=== PATIENT | male | born 1950 | race Caucasian/White ===

== ENCOUNTER 2019-08-11 15:52 | Inpatient (IN) | payer MEDICARE ==
[~2019-08-11] VITALS: Ht 187.9 cm; Wt 90.7 kg
[2019-08-11] MEDS ORDERED: ASPIRIN81 M1 PO (15:57)
[2019-08-11] MEDS ORDERED: PLAVIX75 M1 PO (15:58)
[2019-08-11] MEDS ORDERED: ATORVASTATIN CA40 M1 PO (15:58)
[2019-08-11] MEDS ORDERED: METOPROLOL25 MG PO (15:59)
[2019-08-11] MEDS ORDERED: METOCLOPRAMIDE10 M1 PO (15:59)
[2019-08-11] MEDS ORDERED: MIDODRINE HCL10 MG PO (15:59)
[2019-08-11] MEDS ORDERED: PROTONIX40 MG PO (16:00)
[2019-08-11] MEDS ORDERED: PAXIL20 M1 PO (16:01)
[2019-08-11] MEDS ORDERED: PROSCAR5 M1 PO (16:02)
[2019-08-11] MEDS ORDERED: FERREX 150150 MG PO (16:02)
[2019-08-11 16:43] VITALS: BP 130/64
[2019-08-11 16:44] VITALS: BP 130/64
--- NOTE | 2019-08-11 16:47 | NUR ---
SAPNA GILBERT a 69 year old M admitted via wheel chair from the EMERGENCY ROOM as a voluntary BY POA admission. Arrived on unit at 1637 . ALLERGIES: NKA . Vital signs are: 97.6-66-20 130/64. VERBAL CONSENT FROM POA FOR THE following forms with stated understanding: Authorization For The Release of Medical Information, Clothing List, Consent to Voluntary Admission and Hospitalization, Consent and Release Forms/Receipt of Rights, Acknowledgement of Advance Directive Information, Behavioral Health Consent Form, and Informed Consent of Medications. [facility] A search was conducted and hazardous articles were removed. Client was oriented to the unit. KASIA PADILLA
--- NOTE | 2019-08-11 16:50 | NUR ---
SPOKE WITH DR. ALVARADO AT [phone] RE: MEDICAL MANAGEMENT CONSULT NEEDED PER DR ARCE CONSULT UNDER DR. GALVAN. ALSO ADVISED THAT PT REQUIRES AN ORDER FOR KNEE HIGH JODY HOSE. NO FURTHER ORDERS AT THIS TIME.
--- NOTE | 2019-08-11 17:21 | NUR ---
PT SEMI COOPERATIVE WITH ASSESSMENT. ALERT TO PERSON WITH CONFUSION NOTED. MEMORY DEFICITS NOTED. DEPRESSED MOOD. DENIES SI/HI. CALM. ATTEMPTED TO GET A VERBAL SAFETY CONTRACT FROM THE PATIENT HOWEVER PT STATED HE WILL NOT COME TO STAFF WHEN HE HAS FEELINGS OF HURTING HIMSELF. SUICIDE SCORE IS 7. PT STATED HE HAS TRIED TO HURT HIMSELF HOWEVER HE WILL NOT TALK ABOUT HOW. PT STATED "END OF CONVERSATION". PT REFUSED TO DISCLOSE PLANS. PT STATED "THAT WOULD GIVE IT AWAY". ASSURED PT HE IS SAFE HERE AND STAFF IS HERE ANYTIME HE WANTS TO TALK AND OPEN UP. PT STATED "THATS NOT GOING TO HAPPEN" PT ALSO STATED HE HAD A STROKE 3 YEARS AGO. CELIS PLACED IN ER WITH AN OUTPUT OF 800 CC IN THE ER. IV PLACED IN ER AND REMOVED ON THE UNIT. PT RECEIVED IV ROCEPHIN IN ER. DR MCKAY MADE AWARE OF SUICIDE RISK SCORE AND PTS STATEMENTS. DR MCKAY STATED TO KEEP PT ON Q15 MINUTE SAFETY CHECKS. WILL CONTINUE TO VERBALLY CONTRACT FOR SAFETY.
--- NOTE | 2019-08-11 17:41 | NUR ---
SPOKE WITH DR. OLVERA ADVISED THAT PT RECEIVED A 1X DOSE OF ROCEPHIN IN ER FOR A UTI. NO FURTHER ORDERS AT THIS TIME.
[2019-08-11 19:27] VITALS: BP 147/68
[2019-08-11 20:00] VITALS: BP 147/68
[2019-08-12 06:57] LABS: BASO # 0.1 10*3/uL (0.0-0.1); BASO % 0.8 % (0.0-1.0); EOS # 0.4 10*3/uL (0.0-0.4); EOS % 4.5 % (1.0-4.0); HEMATOCRIT 34.8 % (42.0-52.0); HEMOGLOBIN 11.2 g/dl (14.0-18.0); LYMPH # 1.3 10*3/uL (1.3-4.4); MEAN CELL VOLUME 94.8 fl (80.0-94.0); MEAN CORPUSCULAR HGB 30.5 pg (27.0-31.0); MEAN CORPUSCULAR HGB CONC 32.2 g/dl (33.0-37.0); MEAN PLATELET VOLUME 9.3 fl (9.6-12.3); MONO # 0.8 10*3/uL (0.1-1.0); MONO % 9.3 % (3.0-9.0); NEUT # 5.9 10*3/uL (2.3-7.9); NEUT % 69.9 % (47.0-73.0); PLATELET COUNT AUTOMATED 348 10*3/uL (130-400); RED BLOOD COUNT 3.67 10*6/uL (4.50-5.90); RED CELL DISTRI WIDTH 12.8 % (0-14.5); WHITE BLOOD COUNT 8.5 10*3/uL (4.8-10.8)
[2019-08-12 07:25] LABS: BUN 19 mg/dl (7-24); CHLORIDE 109 mmol/L (98-107); CHOLESTEROL 96 mg/dL (<200); CREATININE 1.21 mg/dL (0.70-1.30); HDL CHOLESTEROL 31 mg/dl (40-60); LDL CHOLESTEROL 48 mg/dL (9-159); SGOT/AST 19 IU/L (3-35); SGPT/ALT 33 U/L (12-78); SODIUM 141 mmol/L (136-145); TOTAL PROTEIN 7.5 gm/dL (6.4-8.2); TRIGLYCERIDES 84 mg/dl (<150); VLDL CHOLESTEROL 17 mg/dL (6-40)
[2019-08-12 07:32] LABS: ALKALINE PHOSPHATASE 77 U/L (45-117)
[2019-08-12 07:45] VITALS: BP 112/64
--- NOTE | 2019-08-12 07:48 | NUR ---
PHYSICAL THERAPY Screened received from nursing along with PT orders for evaluation will follow, thank you Mirta Li PT
[2019-08-12 08:38] LABS: VITAMIN D, 25-HYDROXY 42.6 ng/mL (30-100)
--- NOTE | 2019-08-12 10:24 | NUR ---
Nursing screen and Occupationla Therapy referral received. Thank you. Latisha Gonzales OTR/L
--- NOTE | 2019-08-12 11:54 | NUR ---
AM GROUP/EXERCISE/CRAFT/MUSIC PT CHOSE NOT TO ATTEND OR PARTICIPATE BUT TO REMIAN IN ROOM RESTING AT THIS TIME. PT WILL CONTINUE TO BE ENCOURAGED TO ATTEND AND PARTICIPATE IN FUTURE GROUP SESSIONS.
--- NOTE | 2019-08-12 13:38 | NUR ---
Patient not available for Occupational THerapy evaluation as he was in group activity session. OTR will recheck at a later time. Latisha Gonzales OTR/kenya
--- NOTE | 2019-08-12 13:43 | NUR ---
PHYSICAL THERAPY Attempted to see pt for evaluation, unavailable at this time in group activity, thank you. Mirta Li PT
--- NOTE | 2019-08-12 15:29 | NUR ---
Patient in bed with blanket over his head. Occupational Therapy evaluation education provided to patient. He removed blanket and reported he would prefer OT return tomorrow for the evaluation. Patient was calm and polite. Latisha Gonzales OTR/Bridget
[2019-08-12 20:00] VITALS: BP 133/58
--- NOTE | 2019-08-12 23:17 | NUR ---
24 HR chart check completed.
--- NOTE | 2019-08-12 23:39 | NUR ---
P-DEPRESSED, CONFUSED I-PROVIDE EMOTIONAL SUPPORT, ASSESS ORIENTATION, ASSESS SUICIDAL FEELINGS, ADMINISTER MEDS, MONITOR SLEEP R-PT HAS BEEN CALM & CO-OPERATIVE. ALERT TO PERSON WITH MEMORY DEFICITS. DENIES SUICIDAL FEELINGS. STATED, "SAID THINGS I SHOULD HAVE KEPT TO MYSELF". DID STATE THAT HE IS FEELING "GOOD". CELIS CATH REMAINS INTACT. COMPLIANT TAKING MEDICATIONS WHOLE. P-CONTINUE TO MONIOR & PROVIDE PHYSICAL & EMOTIONAL SUPPORT NEEDED.
--- NOTE | 2019-08-13 04:30 | NUR ---
PT HAS SLEPT PAST 2229
[2019-08-13 08:00] VITALS: BP 150/88
--- NOTE | 2019-08-13 08:15 | NUR ---
Treatment Plan meeting was held this a.m. with Dr. Monroy, RN, AT, TO[employer] and Air Carrier Inspector. Plan for discharge next week. Pt. will require Alternate placement due to being discharged from [facility].
--- NOTE | 2019-08-13 09:10 | NUR ---
Spoke with Patricia at [facility], Advised that Pt. will require SNF and she states to just Fax Referral.
--- NOTE | 2019-08-13 11:02 | NUR ---
DR SINGH AND TEAM ON UNIT TO SEE PATIENT
--- NOTE | 2019-08-13 11:50 | NUR ---
Referrals faxed to [facility] for placement.
--- NOTE | 2019-08-13 11:57 | NUR ---
AM GROUP/EXERCISE AND BRAIN GAMES PT WAS PRESENT FOR MORNING GROUP THERAPY AND PARTICIPATED LIMITEDLY. PT WHEN CALLED ON STATED, "OH, I JUST HAVE SIMPLE THOUGHTS". PT EXPRESSED NO SUICIDAL IDEATIONS WHILE IN GROUP.
--- NOTE | 2019-08-13 12:15 | NUR ---
Spoke with pt's daughter aDrleen Culp who provided additional pt information. Discussed pt's discharge needs. Darleen stated that pt is on the waiting list at [facility] for the assisted living. She was unaware that pt is not allowed to return to [facility] for SNF. Discussed pt's need for SNF. Will explore discharge options for pt and notify Darleen of the options. Prior to most recent hospitalization, pt resided in his own home with services from the [facility] and private duty caregiver.
--- NOTE | 2019-08-13 13:50 | NUR ---
Occupational Therapy evaluation completed on 3N with full eval to follow. Precautions include fall risk,3N unit precautions,impaired functional mobility and transfers,coronado catheter,moderate complexity level 70921 via chart review, testing and evaluation. Recommend OT per POC and SNF to enable return home at independent level. Thank you. Latisha Gonzales OTR/L
--- NOTE | 2019-08-13 14:19 | NUR ---
PHYSICAL THERAPY Ruth completed full note to follow recomend SNF at discharge. Pt is moderate complexity level-50071, PT to work on transfers, strengthening and amb. Mirta Li PT
--- NOTE | 2019-08-13 16:13 | NUR ---
Shift chart check completed.
--- NOTE | 2019-08-13 16:28 | NUR ---
Further Clinicals faxed to [facility] Attn: Sheri.
--- NOTE | 2019-08-13 17:41 | NUR ---
P-CONFUSION I-REDIRECTION WITH 1:1 THERAPEUTIC INTERVENTIONS AND PRESENT REALITY. EDUCATE AND ENCOURAGE MEDICATION COMPLIANCE R-PATIENT MEDICATION COMPLIANT THROUGHOUT SHIFT. CELIS PATENT DRAINING DARK YELLOW URINE. PATIENT ALERT TO SELF AND AT TIMES SITUATIONS. PATIENT WITH RIGHT SIDED WEAKNESS. PATIENT WITH NO HALLUCINATIONS OR DELUSIONS. PATIENT WITH NO SUICIDAL OR HOMICIDAL IDEATIONS P-CONTINUE TO ENCOURAGE MEDICATION COMPLIANCE, CONTINUE TO PRESENT REALITY, ENCOURAGE GROUP THERAPY WHILE AWAKE
[2019-08-13 19:10] VITALS: BP 132/62
--- NOTE | 2019-08-13 21:40 | NUR ---
CALLED TO CLIENTS ROOM FOR YELLOW BROWN DISCHARGE DRIED TO HIS LEGS AND GROIN. PT C/O PAIN. PENIS TAUNT, RED, . CELIS REPOSITIONED AFTER DEFLATING BALLOON. LINE IRRIGATED. NO OBSTRUCTIONS NOTED. WILL NOTIFIE RESIDENTS
--- NOTE | 2019-08-13 21:47 | NUR ---
DR BAILEY & DR DEL ROSARIO ON UNIT TO SEE PT FOR PENILE PAIN. BOTH DRS STATED TO ENCOURAGE FLUID INTAKE AT THIS TIME.
--- NOTE | 2019-08-13 22:16 | NUR ---
24 HR chart check completed.
--- NOTE | 2019-08-13 22:16 | NUR ---
24 HR chart check completed.
--- NOTE | 2019-08-13 22:19 | NUR ---
P-CONFUSED I-PROVIDE EMOTIONAL SUPPORT, ASSESS ORIENTATION, ADMINISTER MEDS, MONITOR SLEEP R-PT HAS BEEN CALM & CO-OPERATIVE. ALERT TO PERSON WITH MEMORY DEFICITS. DENIES SUICIDAL FEELINGS. DID STATE THAT HE IS FEELING "BETTER". CELIS CATH REMAINS INTACT DRAINING DARK YELLOW URINE. COMPLIANT TAKING MEDICATIONS WHOLE. P-CONTINUE TO MONIOR & PROVIDE PHYSICAL & EMOTIONAL SUPPORT NEEDED.
--- NOTE | 2019-08-14 06:44 | NUR ---
PT HAS SLEPT QUIETLY PAST 2214. INTAKE-400, OUTPUT-350
[2019-08-14 07:51] VITALS: BP 102/55
--- NOTE | 2019-08-14 12:04 | NUR ---
AM GROUP/DISCUSSION/COPING PT IN ATTENDANCE BUT RESTING ENTIRE TIME. PT WOKE THE LAST 10 MINUTES OF GROUP TO OBSERVE. PT WILL CONTINUE TO ATTEND AN DPARTICIPATE TO BEST OF ABILITY IN FUTURE GROUP SESSIONS.
--- NOTE | 2019-08-14 15:01 | NUR ---
DR SINGH AND DR YU ON UNIT TO SEE PATIENT
--- NOTE | 2019-08-14 15:37 | NUR ---
P-CONFUSION I-REDIRECTION WITH 1:1 THERAPEUTIC INTERVENTIONS AND PRESENT REALITY. EDUCATE AND ENCOURAGE MEDICATION COMPLIANCE R-PATIENT MEDICATION COMPLIANT THROUGHOUT SHIFT. CELIS PATENT DRAINING YELLOW URINE. PATIENT ALERT TO SELF AND AT TIMES SITUATIONS. PATIENT WITH RIGHT SIDED WEAKNESS. PATIENT WITH NO HALLUCINATIONS OR DELUSIONS. PATIENT WITH NO SUICIDAL OR HOMICIDAL IDEATIONS. PATIENT AMBULATING ON UNIT WITH ASSIST X 1 AND WHEELED WALKER P-CONTINUE TO ENCOURAGE MEDICATION COMPLIANCE, CONTINUE TO PRESENT REALITY, ENCOURAGE GROUP THERAPY WHILE AWAKE
--- NOTE | 2019-08-14 15:56 | NUR ---
PM GROUP/LEISURE/FOOTBALL PT ATTENDED AND PARTICIPATED THORUGH SOCIALIZATION WITH STADFF AND PEERS. PT PLEASANT AT THIS TIME WITH NO S.I. EXPRESSED. PT WILL CONTINUE TO ATTEND AND PARTICIPATE IN FUTURE GROUP SESSIONS TO BEST OF ABILITY.
--- NOTE | 2019-08-14 17:05 | NUR ---
Shift chart check completed.
[2019-08-14 19:55] VITALS: BP 107/58
--- NOTE | 2019-08-14 20:53 | NUR ---
DR CABRERA UPDATED ABOUT BLOOD PRESSURE RESULTS. DR CABRERA STATES TO GIVE ANTIHYPERTENSIVE MEDICATIONS TOGETHER IF PATIENT WILL TAKE MEDICATIONS
--- NOTE | 2019-08-14 22:45 | NUR ---
P-CONFUSION I-REDIRECTION WITH 1:1 THERAPEUTIC INTERVENTIONS AND PRESENT REALITY. EDUCATE AND ENCOURAGE MEDICATION COMPLIANCE R-PATIENT MEDICATION COMPLIANT THROUGHOUT SHIFT. CELIS PATENT DRAINING YELLOW URINE. PATIENT ALERT TO SELF AND AT TIMES SITUATIONS. PATIENT WITH FLAT AFFECT. PATIENT WITH RIGHT SIDED WEAKNESS. PATIENT WITH NO HALLUCINATIONS OR DELUSIONS. PATIENT WITH NO SUICIDAL OR HOMICIDAL IDEATIONS. PATIENT AMBULATING ON UNIT WITH ASSIST X 1 AND WHEELED WALKER P-CONTINUE TO ENCOURAGE MEDICATION COMPLIANCE, CONTINUE TO PRESENT REALITY, ENCOURAGE GROUP THERAPY WHILE AWAKE
[2019-08-15 02:20] LABS: BILIRUBIN 1+ (NEGATIVE); BLOOD NEGATIVE (NEGATIVE); CLARITY SL CLOUDY (CLEAR); COLOR YELLOW (YELLOW); GLUCOSE TRACE (NEGATIVE); KETONE TRACE (NEGATIVE); LEUKO ESTERASE 1+ (NEGATIVE); NITRITE NEGATIVE (NEGATIVE); PH 5.5 (5.0-9.0); SPECIFIC GRAVITY 1.025 (1.005-1.030); UROBILINOGEN 0.2 E.U./dl (0.2-1.0)
[2019-08-15 02:29] LABS: URIC ACID CRYSTALS 1+
[2019-08-15 02:30] LABS: WBC 16-20 wbc/hpf (0-5)
--- NOTE | 2019-08-15 04:43 | NUR ---
RESIDENT CALLED AT [phone], UPDATED ON URINE RESULTS BEING AVAILABLE. NO NEW ORDERS RECEIVED.
--- NOTE | 2019-08-15 05:37 | NUR ---
PATIENT OBSERVED ON Q 15 MIN CHECKS TO HAVE SLEPT APPROX 8 HOURS THROUGHOUT THE NIGHT WITH NO AWAKENINGS OR SIGNS AND SYMPTOMS OF DISTRESS NOTED.
--- NOTE | 2019-08-15 07:48 | NUR ---
Patient resting quietly with no c/o discomfort. Respirations easy and regular. Vital signs stable. No overt distress. GIVENS,JOLENE
[2019-08-15 07:55] VITALS: BP 148/72
--- NOTE | 2019-08-15 12:18 | NUR ---
AM GROUP/EXERCISE/BRAIN GAMES PT CHOSE TO REMAIN RESTING IN BED AT THIS TIME AND DID NOT ATTEND GROUP. PT WILL CONTINUE TO BE ENCOURAGED OT ATTEND AND PARTICIPATE IN FUTURE GROUP SESSIONS.
[2019-08-15 20:00] VITALS: BP 129/55
--- NOTE | 2019-08-15 23:31 | NUR ---
P-CONFUSION I-REDIRECTION WITH 1:1 THERAPEUTIC INTERVENTIONS AND PRESENT REALITY. EDUCATE AND ENCOURAGE MEDICATION COMPLIANCE R-PATIENT MEDICATION COMPLIANT THROUGHOUT SHIFT. CELIS PATENT DRAINING YELLOW URINE. PATIENT ALERT TO SELF AND AT TIMES SITUATIONS. PATIENT WITH FLAT AFFECT. PATIENT WITH RIGHT SIDED WEAKNESS. PATIENT WITH NO HALLUCINATIONS OR DELUSIONS. PATIENT WITH NO SUICIDAL OR HOMICIDAL IDEATIONS. PATIENT AMBULATING ON UNIT WITH ASSIST X 1 AND WHEELED WALKER. PATIENT DENIES PAIN FROM GROIN AREA P-CONTINUE TO ENCOURAGE MEDICATION COMPLIANCE, CONTINUE TO PRESENT REALITY, ENCOURAGE GROUP THERAPY WHILE AWAKE
--- NOTE | 2019-08-16 06:03 | NUR ---
PATIENT SLEPT 4 HOURS OF INTERRUPTED SLEEP THROUGHOUT SHIFT. Q 15 MINUTE CHECKS MAINTAINED. 24 HR chart check completed.
--- NOTE | 2019-08-16 07:15 | NUR ---
PHYSICAL THERAPY Patient seen this am for therapy visit and was sitting semi reclined in activity room Germaine chair upon therapist arrival. Patient identified by name / and was very pleasant this morning. OT electrician assistant was present for observation only during TROUBLE SHOOTER treatment as patient transfers sit to stand MIN A. Patient ambulates with use of wh walker, CGA, demonstrating "slouched" upright posture with head down, 40'x 2. Patient needed v/c to slow gait velocity and to stand tall to improve stride. Patient able to take 5-6 backward steps without LOB and returned to Germaine chair in activity room awaiting breakfast. Patient remained in chair with body alarm under [facility] staff Supervision and will continue pe POC as tolerated. Total treatment time 17 minutes. Bernardo Juarez PTA
--- NOTE | 2019-08-16 07:45 | NUR ---
OT NOTE Pt was seen this A.M. 1:1 for 15 minute OT session with HOUSEKEEPER CHILD CARE and nursing staff present for observation only. Upon arrival pt was sitting upright in the lori chair in the dining room. Pt identified by name and and had no complaints at this time. Pt was taken out into the hallway where he completed multiple sit to stand transfers from chair level with Mercedes and use of w/w for UE support. Challenged pt's static standing tolerance needed for increased I in self care tasks and functional transfers. Pt was able to tolerate aprox 4 minutes at a time before sitting due to fatigue. Pt then completed functional mobility to his bedroom with Mercedes and use of w/w for assist with walker safety due to picking up during turns and having occasional LOB to the R that required Mercedes to correct. Pt was left sitting upright in the lori chair in the dining room under [facility] staff supervision and body alarm activated for safety. COntinue with rec D/C plan to SNF. JEWELS Leary/Bridget
[2019-08-16 08:00] VITALS: BP 140/66
[2019-08-16 08:06] VITALS: BP 140/66
--- NOTE | 2019-08-16 08:30 | NUR ---
Treatment Plan meeting was held with Dr. Monroy, RN, AT, [facility] and Healthcare Project Manager. Plan for discharge next week. Requests PT/OT to follow patient. Pt. remains on waiting list for Assisted Living at [facility]. Pt. is unable to return to [facility]. Referrals have been faxed to [facility] and [facility] for Short Term Placement.
--- NOTE | 2019-08-16 11:45 | NUR ---
LEELA KENNEDY IN TO SEE PT. SPIRITUAL ADVISOR STATED HE WOUD BE A GOOD FIT FOR HER UNIT. PT JOKING AROUND WITH SPIRITUAL ADVISOR.
--- NOTE | 2019-08-16 11:48 | NUR ---
AM GROUP PT DID NOT ATTEND MORNING GROUP THERAPY. PT STAYED IN BED RESTING.
--- NOTE | 2019-08-16 12:25 | NUR ---
[facility] Declined Referral due to Elopement Risk. [facility] have no [facility]. Accepted at [facility] for Skilled Services.
--- NOTE | 2019-08-16 12:26 | NUR ---
Clinical Updates faxed to [facility] Intake .
--- NOTE | 2019-08-16 13:50 | NUR ---
Left Message for Jade the Gameplay Engineer at [facility] concerning Resident Review.
--- NOTE | 2019-08-16 13:54 | NUR ---
SPEECH PATHOLOGY NOTE Pt seen for speech evaluation this date. Pt was pleasant and cooperative; often circumlocuting and avoiding tasks by joking or making unrelated requests to distract clinician. RIPA-2 was administered and the pnt demonstrated adequate immediate memory skills with repeating numbers, then had difficulty with longer items and refused to repeat sentences. For recent memory, he often gave nonsensical responses such as "It's Fredis. I hate him" which was unrelated to being asked the day of the week, then he would not give an appropriate response. He often shrugged his shoulders and said "I don't know." Pt guessed it was the beginning of Aug, which clinician indicated that it almost is and that is this week. Pt was then able to recall that later in the assessment. He was cued with object function and was able to recall 1/3 words that he was asked to remember at the beginning of the test. During the temporal orientation section, he got emotional when asked 'what are the days of the week' as he could not recall his dad's birthday, then became emotional again later when he could not recall the city his daughter lived in. He was unable to complete automatics as by this time his perseveration and word finding were preventing him from formulating additional responses. He did identify he had 2 daughters, Patriica & Darleen and recalled much later that Darleen lived in [place]; however upon chart review, her address listed is in [place]. The pt became emotional when he was unable to recall this information about his family and demonstrated increasing word finding difficulties which hindered his ability to have a conversation. It is recommended that the assessment be completed and the pt receive speech therapy with compensatory strategies and some drills on recalling information about his family, and memory strategies in order to improve his recall abilities. The pt is in agreement and is motivated to improve. He indicated that he had a stroke 3 years ago and 4 years ago, however this is unknown to be correct as it was not found in his medical history as to how long ago he experienced the strokes. Macie Quiroz MS CCC/SUPERVISOR HEAVY EQUIPMENT
--- NOTE | 2019-08-16 14:42 | NUR ---
DR ORTIZ UPDATED ON DISCHARGE FROM PT'S PENIS. NO TEMP NOTED. PT STATED HE IS ALWAYS IN PAIN AND CAN NOT DIFFERENTIATE IF THERE WAS AN INCREASE IN PAIN.
--- NOTE | 2019-08-16 15:47 | NUR ---
IVAN SZYMANSKI/NIGHAT PT DID NOT ATTEND AFTERNOON GROUP THERAPY. PT WAS IN BED NAPPING
[2019-08-16 20:00] VITALS: BP 156/76
--- NOTE | 2019-08-16 20:56 | NUR ---
EVENING/COLOR THERAPY/LEISURE PT ATTENDED UNTIL AFTER SNACK TIME AND OBSERVED WHILE PRESENT. AFTYER SNACK PT WENT TO ROOM TO LAY DOWN. PT PLEASANT WITH NO S.I. AT THIS TIME. PT WILL CONTINUE TO BE ENCOURAGED TO ATTEND AND PARTICIPATE IN GROUP TO BEST OF PT ABILITY.
--- NOTE | 2019-08-16 23:44 | NUR ---
NO ADVERSE BEHAVIORS NOTED. PATIENT ALERT AND ORIENTED TO SELF, PLEASANTLY CONFUSED. PT CALM, COOPERATIVE, AND INTERACTIVE THIS HS. PT REFUSED HS SNACK, FLUIDS CONTINUED TO BE ENCOURAGED. PT MEDICATION COMPLIANT WITHOUT DIFFICULTY AFTER REVIEW. PT DENIES SI/HI, HALLUCINATIONS OR PAIN. NO NOTED RESPONDING TO INTERNAL STIMULI. CELIS INTACT, DRAINING YELLOW URINE. PT CURRENTLY LAYING DOWN WITH EYES CLOSED. RESPIRATIONS EASY AND REGULAR, NO SIGNS OR SYMPTOMS OF DISTRESS NOTED. PLAN IS TO CONTINUE TO MONITOR MOODS AND BEHAVIORS. PROVIDE 1:1 WITH THERAPEUTIC INTERVENTIONS. ENCOURAGE MEDICATION COMPLIANCE. MAINTAIN Q 15 MIN CHECKS.
--- NOTE | 2019-08-17 01:41 | NUR ---
ATTEMPTS X3 TO GET OUT OF BED WITHOUT ASSISTANCE. DISORIENTED TO PLACE AND SITUATION. AGGRESSIVE WITH HANDS OF CARE. PLACED IN JEFFREY CHAIR AND BROUGHT TO QUIET ROOM IN FRONT OF NURSES STATION. WILL CONTINUE TO MONITOR
--- NOTE | 2019-08-17 06:04 | NUR ---
PATIENT SLEPT APPROX 2 HOURS THIS SHIFT INTERRUPTED. PT INTERACTING APPROPRIATELY WITH STAFF THIS AM ABOUT DEER HUNTING. NO SIGNS OR SYMPTOMS OF DISTRESS NOTED.
--- NOTE | 2019-08-17 07:00 | NUR ---
PHYSICAL THERAPY Patient seen this am for therapy visit and was resting semi reclined in activity room Germaine chair upon therapist arrival. Patient identified by name / and was joined by OT funeral director's assistant for observation only during CASH APPLICATIONS ASSOCIATE visit. Patient instructed on then performed seated B LE therex, all planes, AROM, x 20 reps each to increase LE strength. Patient was very anxious this session, stating he only slept a few hours last night and needed several v/c's to complete all therapy task this moring. Patient remained in Germaine chair with body alarm within activity room under [facility] staff Supervision. Will continue per POC as tolerated, total treatment time 14 minutes. Bernardo Juarez, CASH APPLICATIONS ASSOCIATE
--- NOTE | 2019-08-17 07:30 | NUR ---
OT NOTE Pt was seen this A.M. 1:1 for 15 minute OT session with AIRLINE CAPTAIN and nursing staff present for observation only. Upon arrival pt was sitting upright in the lori chair in the dining room. Pt identified by name and and had no complaints at this time. Pt was taken out into the hallway where he completed multiple sit to stand transfers from the chair level with Mercedes and use of hand rail for UE support. Challenged pt's static standing tolerance needed for increased I in self care tasks and functional transfers. pt was able to tolerate aprox 3 minutes at a time before sitting due to fatigue. Pt was then taken to his bedroom where he completed functional mobility into the bathroom with Mercedes and use of w/w, pt had multiple LOB throughout that required Mercedes to correct. There he stood sink side while washing his hands with CGA. Pt had LOB to the L while turning that required modA to correct. Throughout entire session pt required constant verbal prompts for slowing down due to being impulsive and increasing risk of falls, pt had poor carry over. Pt was left sitting upright in the lori chair in the dining room with body alarm activated for safety and under [facility] staff supervision. COntinue with rec D/c plan to SNF. JEWELS Leary/Bridget
[2019-08-17 07:35] VITALS: BP 148/84
--- NOTE | 2019-08-17 07:49 | NUR ---
Patient resting quietly with no c/o discomfort. Respirations easy and regular. Vital signs stable. No overt distress. GIVENS,JOLENE
--- NOTE | 2019-08-17 08:00 | NUR ---
DR. RYAN ON UNIT TO ASSESS PATIENT.
--- NOTE | 2019-08-17 08:15 | NUR ---
Treatment Plan meeting was held this a.m. with Dr. Monroy, RN, AT, TEST CASE DEVELOPER-S and Watch Mechanic in attendance. Plan for discharge next week. Pt. is accepted at [facility].
--- NOTE | 2019-08-17 09:14 | NUR ---
Left a voicemail message for pt's daughter Darleen Culp providing update and requesting a return call to discuss.
--- NOTE | 2019-08-17 09:16 | NUR ---
SPEECH PATHOLOGY Patient was seen for treatment this am, targeting cognitive skills. Patient was in bed but awake, pleasant and able to participate. He answered orientation questions with 30% acc. Clinician provided correct responses for his errors. Due to impaired memory, he was not able to recall information when asked again a few minutes later. When biographical information was asked, he had difficulty with all and needed cues to correctly answer each question. He expressed frustration over not being able to recall information regarding his children. Clinician stated that she would write the information for him in order to help him recall. Strategies were provided during session regarding external aids to help with memory and orientation. He was thankful for information provided. Continue therapy plan. JAYLAN HIGUERA MSCCC-PALLETIZER
--- NOTE | 2019-08-17 10:52 | NUR ---
Spoke with pt's daughter Darleen Culp. Discussed discharge options. Darleen is aware that pt has been accepted to [facility]. She would like a referral to [facility] also. She plan on discussing these options with a friend and will let this advertising copywriter know of her preference. Await return call.
--- NOTE | 2019-08-17 11:25 | NUR ---
Resident Review Received Via Fax from the Melany MOORE which came from [facility]. Pt. Ruled out from Further review and may reenter Nursing Facility. Placed in Chart.
--- NOTE | 2019-08-17 11:45 | NUR ---
Referral faxed to [facility] Attn: [phone].
--- NOTE | 2019-08-17 11:52 | NUR ---
AM GROUP PT WAS PRESENT FOR MORNING GROUP THERAPY FOR A SHORT FEW MINUTES BEFORE LEAVING THE DAYROOM. PT DID NOT RETURN.
--- NOTE | 2019-08-17 15:46 | NUR ---
PM GROUP PT WAS LATE COMING INTO THE GROUP ROOM AND DID NOT PARTICIPATE. PT WAS MESSING WITH HIS WALKER AND WHEN ASKED WHAT HE WAS DOING STATED, "I'M JUST TINKERING." PT WAS NOT USING THE WALKER PROPERLY AND WAS REMINDED SEVERAL TIMES TO DO SO.
--- NOTE | 2019-08-17 16:10 | NUR ---
[facility] Accepts patient. Notified Kathy Bates of Alternate facility request by Daughter. Thanked this typewriter aligner for Referral.
--- NOTE | 2019-08-17 16:10 | NUR ---
Shift chart check completed.
[2019-08-17 20:02] VITALS: BP 140/70
--- NOTE | 2019-08-18 01:57 | NUR ---
NO ADVERSE BEHAVIORS NOTED. PATIENT ALERT AND ORIENTED TO SELF, PLEASANTLY CONFUSED. PT CALM, COOPERATIVE. PT IN ROOM AND BED SINCE BEGINNING OF SHIFT. DURING 1:1 PATIENT STATED HE WAS FINE, JUST READY FOR BED. PT REFUSED HS SNACK, FLUIDS CONTINUED TO BE ENCOURAGED. PT MEDICATION COMPLIANT WITHOUT DIFFICULTY AFTER REVIEW. PT DENIES SI/HI, HALLUCINATIONS OR PAIN. NO NOTED RESPONDING TO INTERNAL STIMULI. CELIS INTACT, DRAINING YELLOW URINE. PT CURRENTLY LAYING DOWN WITH EYES CLOSED. RESPIRATIONS EASY AND REGULAR, NO SIGNS OR SYMPTOMS OF DISTRESS NOTED. PLAN IS TO CONTINUE TO MONITOR MOODS AND BEHAVIORS. PROVIDE 1:1 WITH THERAPEUTIC INTERVENTIONS. ENCOURAGE MEDICATION COMPLIANCE. MAINTAIN Q 15 MIN CHECKS.
--- NOTE | 2019-08-18 06:45 | NUR ---
PATIENT OBSERVED ON Q 15 MIN CHECKS TO HAVE SLEPT APPROX 7 HOURS THIS SHIFT UNINTERRUPTED. NO SIGNS OR SYMPTOMS OF DISTRESS NOTED.
[2019-08-18 07:20] VITALS: BP 144/74
--- NOTE | 2019-08-18 07:25 | NUR ---
PHYSICAL THERAPY Patient seen this am for therapy visit and was supine in bed upon therapist arrival. Patient identified by name / and reports no new c/o's at this time. OT printer assistant was present for observation only during STORES CLERK visit this morning as patient transfers supine to sit EOB with CGA x 1. Patient needed a minute or so to fully awaken before performing sit to stand CGA from low bed surface, then ambulates with use of wh walker, CGA, 100'x 1. Patient demonstrates very cautious gait pattern with decreased stride, and returned to Germaine chair in activity room under [facility] staff Supervision, including body alarm for safety. Will continue per POC as tolerated, total treatment time 16 minutes. Bernardo Juarez, STORES CLERK
--- NOTE | 2019-08-18 07:30 | NUR ---
OT NOTE Pt was seen this A.M. 1:1 for 15 minute OT session with PICKLE SORTER and nursing staff present for observation only. Upon arrival pt was supine in bed. Pt identified by name and and had no complaints at this time. Pt transferred supine to sit EOB with Mercedes for assist with UB. While sitting EOB pt donned B socks with Mercedes. Sit to stand completed from bed level with Mercedes and use of w/w for UE support. Challenged pt's dynamic standing balance needed for increased I and enhanced safety. While weight shifting, crossing midline, and reaching over all planes pt was able to maintain F-/F standing balance. Functional mobility was then completed to the dining room with CGA and use of w/w with verbal prompts for walker safety throughout. Pt was left sitting upright in the dining room with body alarm activated for safety and under U staff supervision. Continue with rec D/C plan to SNF. JEWELS Leary/Bridget
--- NOTE | 2019-08-18 08:00 | NUR ---
Treatment Plan meeting was held this a.m. with Dr. Monroy, RN, AT, [facility] and Director Case in attendance. Plan for discharge Friday. Pt. is accepted at [facility].
--- NOTE | 2019-08-18 09:13 | NUR ---
DR RYAN ON UNIT TO ASSESS PT. UPDATE PROVIDED TO
--- NOTE | 2019-08-18 11:01 | NUR ---
Spoke with pt's daughter/DPOAHC Darleen Culp and informed her that [facility] has accepted pt. Tentative plan is for discharge on 08/23 with a friend of the family providing the transportation to . Darleen is to confirm the time and call [facility] with that info.
--- NOTE | 2019-08-18 11:48 | NUR ---
AM GROUP/LESLIE HOYOS PT WAS PRESENT FOR MORNING GROUP THERAPY RECLINED IN A JEFFREY CHAIR SLEEPING SOUNDLY. PT DID NOT WAKE DURING GROUP AND WAS NOTED TO BE SNORING LOUDLY
--- NOTE | 2019-08-18 12:17 | NUR ---
P: CONFUSION. ALERT TO PERSON ONLY. INCREASED IRRITABILITY WITH CONFUSION. I: REORIENT PT NEEDED. PROVIDED 1:1 FOR THERAPEUTIC COMMUNICATION. MONITORED BEHAVIORS WITH Q15 MINUTE SAFETY CHECKS. ENCOURAGED MEDICATION COMPLIANCE. ENCOURAGED ATTENDANCE AND PARTICIPATION IN GROUP. R:MEDICATION COMPLIANT. NO ADVERSE MOODS OR BEHAVIORS NOTED. PT RECEPTIVE TO REDIRECTION AND REORIENTATION. REORIENTATION INEFFECTIVE. P:CONTINUE TO OFFER 1:1 FOR THERAPEUTIC COMMUNICATION. MONITOR BEHAVIORS WITH Q15 MINUTE SAFETY CHECKS. CONTINUE TO OFFER NONPHARMACOLOGICAL INTERVENTIONS FOR REDIRECTION. CONTINUE TO ENCOURAGE MEDICATION COMPLIANCE AND ENCOURAGE ATTENDENCE AND PARTICIPATION IN GROUPS.
--- NOTE | 2019-08-18 14:00 | NUR ---
Clinical updates faxed to [facility] as well as Copy of PASRR and Letter.
--- NOTE | 2019-08-18 14:11 | NUR ---
SPEECH PATHOLOGY Patient was seen for treatment over two visits, both this am and pm. Upon visit this am, patient was sitting upright in gerichair but with his eyes closed. He nodded his head a couple times to questions but did not open his eyes to fully participate in therapy. Clinician returned this pm for second attempt. He was again upright in gerichair with eyes closed. He opened his eyes and answered a few questions but needed constant cues to keep his eyes open. Biographical information was written for him to help organize and recall information regarding family. He used this to correctly respond to a few questions but eventually kept his eyes closed and elicited no further response. Treatment was terminated due to poor participation. Continue plan as appropriate. JAYLAN HIGUERA MSCCC-INTEGRATED LOGISTICS SUPPORT MANAGER
--- NOTE | 2019-08-18 14:56 | NUR ---
PHYSICAL THERAPY CO-SIGN I approve of the Physical Therapy notes written above. Mirta Li PT
--- NOTE | 2019-08-18 14:57 | NUR ---
PHYSICAL THERAPY CO-SIGN I approve of the Physical Therapy notes written above. Mirta Li PT
--- NOTE | 2019-08-18 15:23 | NUR ---
OCCUPATIONAL THERAPY CO-SIGN I approve of the Occupational Therapy notes written above. Dahlia Mullins, OTR/L
--- NOTE | 2019-08-18 15:53 | NUR ---
PM GROUP/BALL TOSS AND MOVIE PT WAS PRESENT FOR AFTERNOON GROUP THERAPY SLEEPING ON AND OFF RECLINED IN A JEFFREY CHAIR. PT AT ONE TIME HAD HIS BLANKET OVER HIS HEAD. PT DID WAKE AND ASK FOR MILK AND APPEARED TO BE WATCHING THE MOVIE.
[2019-08-18 19:13] VITALS: BP 150/72
--- NOTE | 2019-08-18 21:29 | NUR ---
P-CONFUSION I-REDIRECTION WITH 1:1 THERAPEUTIC INTERVENTIONS AND PRESENT REALITY. EDUCATE AND ENCOURAGE MEDICATION COMPLIANCE R-PATIENT MEDICATION COMPLIANT THROUGHOUT SHIFT. CELIS PATENT DRAINING YELLOW URINE. PATIENT ALERT TO SELF, PLACE AND AT TIMES SITUATIONS. PATIENT WITH FLAT AFFECT. PATIENT WITH RIGHT SIDED WEAKNESS. PATIENT WITH NO HALLUCINATIONS OR DELUSIONS. PATIENT WITH NO SUICIDAL OR HOMICIDAL IDEATIONS. PATIENT AMBULATING ON UNIT WITH ASSIST X 1 AND WHEELED WALKER. PATIENT DENIES PAIN FROM GROIN AREA. PATIENT REFUSED NOURISHMENT AT HS. FLUIDS PROVIDED. P-CONTINUE TO ENCOURAGE MEDICATION COMPLIANCE, CONTINUE TO PRESENT REALITY, ENCOURAGE GROUP THERAPY WHILE AWAKE
--- NOTE | 2019-08-19 06:09 | NUR ---
Patient slept approx. 7 hours shift without any interruptions. Q 15 minute safety checks continued and maintained.
--- NOTE | 2019-08-19 06:13 | NUR ---
PATIENT SLEPT >8 HOURS OF UNINTERRUPTED SLEEP THROUGHOUT SHIFT. Q 15 MINUTE CHECKS MAINTAINED. 24 HR chart check completed.
[2019-08-19 07:29] VITALS: BP 148/82
--- NOTE | 2019-08-19 08:00 | NUR ---
Patient resting quietly with no c/o discomfort. Respirations easy and regular. Vital signs stable. No overt distress. ASHLEE ROSARIO
--- NOTE | 2019-08-19 11:42 | NUR ---
AM GROUP PT DID NOT ATTEND MORNING GROUP THERAPY. PT WAS IN BED RESTING.
[2019-08-19 14:01] LABS: BASO # 0.1 10*3/uL (0.0-0.1); BASO % 0.7 % (0.0-1.0); EOS # 0.8 10*3/uL (0.0-0.4); EOS % 6.6 % (1.0-4.0); HEMATOCRIT 35.4 % (42.0-52.0); HEMOGLOBIN 11.1 g/dl (14.0-18.0); LYMPH # 1.4 10*3/uL (1.3-4.4); LYMPH % 11.7 % (27.0-41.0); MEAN CORPUSCULAR HGB 30.4 pg (27.0-31.0); MEAN CORPUSCULAR HGB CONC 31.4 g/dl (33.0-37.0); MONO # 0.8 10*3/uL (0.1-1.0); NEUT # 8.6 10*3/uL (2.3-7.9); NEUT % 73.5 % (47.0-73.0); PLATELET COUNT AUTOMATED 295 10*3/uL (130-400); RED BLOOD COUNT 3.65 10*6/uL (4.50-5.90); WHITE BLOOD COUNT 11.7 10*3/uL (4.8-10.8)
[2019-08-19 14:15] LABS: ALKALINE PHOSPHATASE 79 U/L (45-117); BUN 21 mg/dl (7-24); CHLORIDE 110 mmol/L (98-107); CREATININE 1.42 mg/dL (0.70-1.30); PHOSPHOROUS 3.6 mg/dL (2.5-4.9); POTASSIUM 4.8 mmol/L (3.5-5.1); SGOT/AST 19 IU/L (3-35); SGPT/ALT 25 U/L (12-78); SODIUM 143 mmol/L (136-145); TOTAL PROTEIN 7.4 gm/dL (6.4-8.2)
--- NOTE | 2019-08-19 14:43 | NUR ---
PM GROUP/FOOTBALL PT DID NOT ATTEND AFTERNOON GROUP THERAPY. PT WAS RESTING IN A QUIET ROOM
[2019-08-19 14:49] LABS: BILIRUBIN NEGATIVE (NEGATIVE); BLOOD 3+ (NEGATIVE); CLARITY CLOUDY (CLEAR); COLOR YELLOW (YELLOW); GLUCOSE NEGATIVE (NEGATIVE); KETONE NEGATIVE (NEGATIVE); LEUKO ESTERASE 2+ (NEGATIVE); NITRITE POSITIVE (NEGATIVE); SPECIFIC GRAVITY 1.025 (1.005-1.030); UROBILINOGEN 0.2 E.U./dl (0.2-1.0)
[2019-08-19 14:55] LABS: BACTERIA 4+; EPITHELIAL CELLS 0-2; RBC TNTC rbc/hpf (0-2); WBC TNTC wbc/hpf (0-5)
--- NOTE | 2019-08-19 15:11 | NUR ---
PT IS C/O NOT FEELING WELL. PT NOTED TO BE PALE, SLIGHTLY DIAPHORETIC. PT VS ASSESSED, T98.4 - 64 - 18 - 70/50 MANUAL, SPO2 98% RA. ADMINISTERED MIDODRINE PER ROUTINE ORDERS. PT ASSISTED TO GERICHAIR AND RECLINED WITH FEET UP. PT ENCOURAGED TO DRINK WATER. MANUAL BP REMEASURED. PT MEDICATION COMPLIANT, ABLE TO TRANSFER CHAIRS X2 ASSIST. PT DRANK 120CC OF WATER. MANUAL BP NOW 110/70. DR. LONGO NOTIFIED OF PT CONDITION. STATES "OK. RECHECK IN 20 MINUTES AND CALL BACK". DR ESPINOZA THEN CAME ONTO UNIT TO ASSESS PT. DR. ESPINOZA REMEASURED MANUAL BP FOR A READING OF 110/80. STATES HE WILL PUT IN LABS. MULTIPLE ORDERS RECEIVED INCLUDING TO DISCONTINUE CELIS, LAB WORK, AND IV FLUIDS. CELIS DISCONTINUED X [address] NURSES. LAB WORK COLLECTED. DR. ESPINOZA REVIEWED. SEE ORDERS FOR SPECIFIC DIRECTIONS. WILL CONTINUE TO MONITOR PT CONDITION. WILL CONTINUE TO FOLLOW NEW ORDERS PER DR. ESPINOZA. WILL CONTINUE TO ADMINISTER MEDICATIONS PER ORDER. Q 15 MIN MONITORING PER POLICY.
--- NOTE | 2019-08-19 15:30 | NUR ---
IV started left antecubital with #24 angiocath after 1 attempts. The IV site was prepped with Chloraprep Saline lock attached. IV solution 0.9NS infusing at 125 cc/hr. Sterile dressing applied. Patient tolerated precedure well. Procedure performed according to [facility] policy & procedure. ASHLEE ROSARIO
--- NOTE | 2019-08-19 15:50 | NUR ---
BLADDER SCAN 77ML.
--- NOTE | 2019-08-19 16:30 | NUR ---
MANUAL BP 140/76. ROUTINE MEDICATIONS GIVEN PER ORDER
--- NOTE | 2019-08-19 17:36 | NUR ---
Patient watching football with peers, no c/o discomfort. IV fluids running without difficulty. Respirations easy and regular. No overt distress. ASHLEE ROSARIO
[2019-08-19 20:00] VITALS: BP 170/71
--- NOTE | 2019-08-19 21:44 | NUR ---
P-CONFUSION, PREOCCUPIED I-REDIRECTION WITH 1:1 THERAPEUTIC INTERVENTIONS AND PRESENT REALITY. EDUCATE AND ENCOURAGE MEDICATION COMPLIANCE R-PATIENT MEDICATION COMPLIANT THROUGHOUT SHIFT. PATIENT WITH FLAT AFFECT. PATIENT WITH RIGHT SIDED WEAKNESS. PATIENT WITH NO HALLUCINATIONS OR DELUSIONS. PATIENT WITH NO SUICIDAL OR HOMICIDAL IDEATIONS. PATIENT WITH NSS AT 125ML/HR INFUSING WITHOUT DIFFICULTY. IV SITE INTACT WITH NO REDNESS, EDEMA, OR ELEVATED TEMPERATURE AT SITE. PATIENT PROVIDED NOURISHMENT AND FLUIDS AT HS. PATIENT PREOCCUPIED WITH BLADDER ELIMINATION. PATIENT STATING "I DON'T WANT THAT CELIS BACK IN ME, BUT I HAVE A FEELING THAT IT WILL BE PUT BACK IN. THIS NURSE REVIEWED NEW ORDER WITH PATIENT ABOUT BLADDER SCAN, IV FLUIDS, AND STARTING ANTIOBIOTIC CIPRO FOR +UTI. PATIEN VOICED UNDERSTANDING. PATIENT DENIES ANY DISCOMFORT TO GROIN OR ABDOMEN AT THIS TIME. P-CONTINUE TO ENCOURAGE MEDICATION COMPLIANCE, CONTINUE TO PRESENT REALITY, ENCOURAGE GROUP THERAPY WHILE AWAKE
--- NOTE | 2019-08-19 22:40 | NUR ---
PATIENT TOILETED AT THIS TIME PRIOR TO GOING TO BED. PATIENT DID NOT VOID PRIOR TO BLADDER SCAN. PATIENT DENIES ANY URGES TO VOID AND DENIES ABDOMINAL OR GROIN DISCOMFORT. BLADDER SCAN RESULT OF 226ML. PATIENT ALSO AWARE TO INFORM NURSING IF HE HAS TO VOID BEFORE NEXT BLADDER SCAN. PATIENT VERBALIZED UNDERSTANDING.
--- NOTE | 2019-08-20 02:55 | NUR ---
PATIENT BLADDER SCAN RESULT OF >851. PATIENT DENIES DISCOMFORT FROM ABDOMEN OR GROIN. ABDOMEN FIRM. PATIENT HAS NOT VOIDED THIS SHIFT. DR CABRERA UPDATED AND WITH ORDER TO INSERT CELIS CATHETER DUE TO RETENTION.
--- NOTE | 2019-08-20 03:15 | NUR ---
CELIS CATHETER INSERTED AT THIS TIME. ATTEMPT X 1. STERILE TECHNIQUE USED. 18 NEW ZEALANDER 10ML BALLOON INSERTED. PATIENT TOLERATED WITHOUT DIFFICULTY. IMMEDIATE URINE OUTPUT OF 700ML OF YELLOW URINE AND SEDIMENT PRESENT. LEG STRAP APPLIED. PATIENT UNABLE TO VOID AFTER TOILETING OFFERED PRIOR TO CELIS INSERTION. SMALL AMOUNT OF LIGHT YELLOW-BROWN DISCHARGE IN PATIENTS BRIEF PRIOR TO CELIS INSERTION. PATIENT DENIES DISCOMFORT OR PAIN AT THIS TIME.
--- NOTE | 2019-08-20 06:13 | NUR ---
PATIENT SLEPT 6 HOURS OF INTERRUPTED SLEEP THROUGHOUT SHIFT. Q 15 MINUTE CHECKS MAINTAINED. 24 HR chart check completed.
[2019-08-20 06:42] LABS: BASO # 0.1 10*3/uL (0.0-0.1); BASO % 0.8 % (0.0-1.0); EOS # 0.7 10*3/uL (0.0-0.4); HEMATOCRIT 30.6 % (42.0-52.0); HEMOGLOBIN 9.8 g/dl (14.0-18.0); LYMPH # 1.7 10*3/uL (1.3-4.4); LYMPH % 21.9 % (27.0-41.0); MEAN CORPUSCULAR HGB 30.4 pg (27.0-31.0); MEAN PLATELET VOLUME 9.1 fl (9.6-12.3); MONO # 0.7 10*3/uL (0.1-1.0); MONO % 9.4 % (3.0-9.0); NEUT # 4.5 10*3/uL (2.3-7.9); NEUT % 58.5 % (47.0-73.0); PLATELET COUNT AUTOMATED 253 10*3/uL (130-400); RED BLOOD COUNT 3.22 10*6/uL (4.50-5.90); RED CELL DISTRI WIDTH 13.1 % (0-14.5); WHITE BLOOD COUNT 7.6 10*3/uL (4.8-10.8)
[2019-08-20 06:59] LABS: BUN 19 mg/dl (7-24); CHLORIDE 110 mmol/L (98-107); CREATININE 1.09 mg/dL (0.70-1.30); SODIUM 142 mmol/L (136-145)
[2019-08-20 07:03] LABS: POTASSIUM 3.7 mmol/L (3.5-5.1)
--- NOTE | 2019-08-20 07:15 | NUR ---
PHYSICAL THERAPY Patient seen this am for therapy visit and was supine in bed upon therapist arrival. Patient voices no new c/o's and was identified by name / . OT executive assistant to president was present for observation only this morning as patient transfers supine to sit EOB with MIN A. Patient performed sit to stand from low bed surface, MIN/CGA, ambulating 10'x 1 to bathroom with use of wh walker, CGA. Patient ambulated additional 50'x 1, wh walker, CGA, demonstrating decreased posture / decreased stride and POOR walker safety this session. Patient returned to [facility] chair in activity room and remained under [facility] staff Supervision awaiting breakfast. Will continue per POC as tolerated, total treatment time 16 minutes. Bernardo Juarez, MEDICAL ADMINISTRATIVE ASSISTANT
--- NOTE | 2019-08-20 07:40 | NUR ---
OT NOTE Pt was seen this A.M. 1:1 for 15 minute OT session with STATION INSTALLER AND REPAIRER and nursing staff present for observation only. Upon arrival pt was supine in bed. Pt identified by name and and had no complaints at this time. Pt transferred supine to sit EOB with Mercedes for assist with UB. Sit to stand completed from bed level with Mercedes and use of w/w followed by functional mobility into the bathroom with Mercedes and use of w/w for assist with walker safety and navigation. Pt then stood sink side while washing his hands and face with Mercedes for assist with sequencing. Pt had two LOB that occured while standing sink side, one LOB backwards and one to the L that required Mercedes to correct. Functional mobility was then completed to the dining room with Mercedes and use of w/w, there he was left sitting upright in the lori chair under [facility] staff supervision who reported that pt did not need a body alarm on the chair. Continue with rec D/C plan to SNF. JEWELS Leary/Bridget
[2019-08-20 08:00] VITALS: BP 160/80
--- NOTE | 2019-08-20 08:05 | NUR ---
Patient sitting quietly with no c/o discomfort. Respirations easy and regular. Vital signs stable. No overt distress. TANNA DELGADO
--- NOTE | 2019-08-20 11:40 | NUR ---
AM GROUP/WATERCOLORS PT ATTENDED MORNING GROUP THERAPY BUT CHOSE NOT TO PARTICIPATE. PT SAT QUIETLY IN A CHAIR WITH EYES CLOSED. PT WAS AWAKENED BY A PEER WHO WAS COMBATIVE AND EXIT SEEKING. PT EXPRESSED NO SUICIDAL IDEATIONS
--- NOTE | 2019-08-20 13:04 | NUR ---
SPEECH THERAPY Patient seen for individual treatment this date. Patient was pleasant and cooperative, with confusion observed. Patient appeared tired, as he was observed to frequently close his eyes, appearing to fall asleep. He was easily awoken by clinicain. Patient answering wh and orientation questions pertaining to self, answering with 8/14 (57% accuracy). Additional portion of the RIPA-2 attempted to be administered to further address cognitive needs, however, patient appeared to become upset, with re-direction provided. Upon additional administration of assessment, patient continue to fall asleep. Clinicain stated to patient that she would try again at a later time/date. Patient reported he would appreciate that. Continue short-term plan of care. Use of external visual aids and compensatory strategies to be used in assisting orientation with improved cognition. Brenda Velarde MA CCC-MECHANICAL INTEGRITY SPECIALIST
--- NOTE | 2019-08-20 15:14 | NUR ---
PHYSICAL THERAPY CO-SIGN I approve of the Physical Therapy notes written above. Mirta Li PT
--- NOTE | 2019-08-20 15:45 | NUR ---
PM GROUP/LEISURE INTERESTS PT DID NOT ATTEND AFTERNOON GROUP THERAPY. PT WAS IN BED RESTING.
--- NOTE | 2019-08-20 16:04 | NUR ---
PT PLEASANT COOPERATIVE, INTERACTIVE, SMILING WITH STAFF AND TALKING WHEN SPOKEN WITH. PT UP TO LOUNGE WITH PEERS FOR MORNING ROUTINES, AT THIS TIME HE IS RESTING IN BED. CELIS DRAINING WITHOUT DIFFICULTY, PT CONTINUES WITH DISCHARGE FROM PENIS TIP, [facility] PROVIDED 750CC REMOVED. PT HAS HAD NO SI/HI OR DELUSIONS NOTED. MEDICATION COMPLIANT, MAINATIN 15 MIN CHECKS
[2019-08-20 20:00] VITALS: BP 137/62
--- NOTE | 2019-08-20 21:40 | NUR ---
P-CONFUSED I-PROVIDE EMOTIONAL SUPPORT, ASSESS ORIENTATION, ADMINISTER MEDS, MONITOR SLEEP R-PT HAS BEEN SITTING IN THE DINING ROOM QUIETLY WITH PEERS. HE HAS BEEN CALM & CO-OPERATIVE. ALERT TO PERSON & PLACE. MEMORY DEFICITS PRESENT. DENIES SUICIDAL FEELINGS. STATED HE IS FEELING "GOOD". CELIS CATH REMAINS INTACT. COMPLIANT TAKING MEDICATIONS WHOLE. AMBULATES WITH ASSISTANCE OF A WALKER & ONE STAFF ASSIST. P-CONTINUE TO MONIOR & PROVIDE PHYSICAL & EMOTIONAL SUPPORT NEEDED.
--- NOTE | 2019-08-21 00:07 | NUR ---
24 HR chart check completed.
--- NOTE | 2019-08-21 05:07 | NUR ---
PT HAS SLEPT PAST 2244
[2019-08-21 07:47] VITALS: BP 145/88
--- NOTE | 2019-08-21 08:00 | NUR ---
Patient resting quietly with no c/o discomfort. Respirations easy and regular. Vital signs stable. No overt distress. ASHLEE ROSARIO
--- NOTE | 2019-08-21 11:58 | NUR ---
AM GROUP/EXERCISES/BALL TOSS PT ATTENDED AND PARTICIPATED IN GROUP. PT PLEASANT AND ON TASK WITH NO SUICIDAL IDEATIONS EXPRESSED AT THIS TIME. PT WILL CONTINUE TO ATTEND AND PARTICIPATE IN FUTURE GROUP SESSIONS.
--- NOTE | 2019-08-21 15:44 | NUR ---
PM GROUP/LEISURE SKILLS PT CHOSE NOT TO ATTEND BUT TO REMAIN IN BED SLEEPING AT THIS TIME. PT WILL CONTINUE TO BE ENCOURAGED TO ATTEND AND PARTICIPATE IN FUTURE GROUP SESSIONS.
--- NOTE | 2019-08-21 16:55 | NUR ---
PT PLEASANT COOPERATIVE, MEDICATION COMPLIANT, GOLEY DRAINING WITHOUT DIFFICULTY, GOOD INTAKE FLUIDS AND FOODS, AMBULATED DOWN HALLWAY WITH STEADY GAIT. REQUIRES STAFF TO ENCOURAGE HIM TO COME OUT FROM ROOM AND INTERACT WITH MILIEU ACTIVITIES. NO SI/HI OR DELUSIONS. CONTINUE 15 MIN CHECKS
[2019-08-21 19:48] VITALS: BP 140/85
--- NOTE | 2019-08-21 19:53 | NUR ---
24 HR chart check completed.
--- NOTE | 2019-08-21 22:21 | NUR ---
P-CONFUSED, TIRED I-PROVIDE EMOTIONAL SUPPORT, ASSESS ORIENTATION, ADMINISTER MEDS, MONITOR SLEEP R-PT HAS BEEN RESTING IN BED SINCE THE ONSET OF THE SHIFT. HE HAS BEEN CALM & CO-OPERATIVE. ALERT TO PERSON & PLACE. MEMORY DEFICITS PRESENT. DENIES SUICIDAL FEELINGS. STATED HE IS FEELING TIRED THIS EVENING. CELIS CATH REMAINS INTACT WITH SMALL AMOUNT OF THICK, DARK YELLOW TO BROWN DISCHARGE ON DIAPER. COMPLIANT TAKING MEDICATIONS WHOLE. AMBULATES WITH ASSISTANCE OF A WALKER & ONE STAFF ASSIST. P-CONTINUE TO MONIOR & PROVIDE PHYSICAL & EMOTIONAL SUPPORT NEEDED.
--- NOTE | 2019-08-22 06:12 | NUR ---
PT HAS SLEPT SINCE THE ONSET OF THE SHIFT. HAD A BRIEF AWAKENING TO GO TO THE BATHROOM
[2019-08-22 07:40] VITALS: BP 149/80
--- NOTE | 2019-08-22 08:06 | NUR ---
Patient resting quietly with no c/o discomfort. Respirations easy and regular. Vital signs stable. No overt distress. ASHLEE ROSARIO
[2019-08-22 20:00] VITALS: BP 168/88; BP 186/88
--- NOTE | 2019-08-22 20:45 | NUR ---
P-CONFUSED, TIRED I-PROVIDE EMOTIONAL SUPPORT, ASSESS ORIENTATION, ADMINISTER MEDS, MONITOR SLEEP R-PT HAS BEEN RESTING IN BED SINCE THE ONSET OF THE SHIFT. HE HAS BEEN CALM & CO-OPERATIVE. ALERT TO PERSON & PLACE. MEMORY DEFICITS PRESENT. DENIES SUICIDAL FEELINGS. STATED HE IS FEELING TIRED THIS EVENING. CELIS CATH REMAINS INTACT WITH VERY SMALL AMOUNT OF THICK, DARK YELLOW DISCHARGE ON DIAPER. COMPLIANT TAKING MEDICATIONS WHOLE. HAS REMAINED IN BED & REPOSITIONS SELF FOR COMFORT. 1999 BP WAS 168/88 MANUAL, RADIAL PULSE 76. PT IS ASYMPTOMATIC. DENIES ANY PHYSICAL DISCOMFORT. ROUTINE LOPRESSOR 25 MG GIVEN. WILL CONTINUE TO MONITOR. P-CONTINUE TO MONIOR & PROVIDE PHYSICAL & EMOTIONAL SUPPORT NEEDED.
--- NOTE | 2019-08-22 21:12 | NUR ---
24 HR chart check completed.
[2019-08-22 22:15] VITALS: BP 178/90
--- NOTE | 2019-08-22 22:35 | NUR ---
B/P RETAKEN @ 2214 178/90 MANUAL, PULSE [address] CABRERA NOTIFIED @ 2222 WITH ORDER TO GIVE CATAPRES 0.1 MG WHICH WAS GIVEN @ 2229. PT REMAINS ASYMPTOMATIC & DENEIES ANY PHYSICAL DISCOMFORT. WILL CONTINUE TO MONITOR.
[2019-08-23 00:42] VITALS: BP 162/86
--- NOTE | 2019-08-23 00:42 | NUR ---
B/P RETAKEN 162/86 MANUAL, RADIAL PULSE 72, PT REMAINS ASYMPTOMATIC, DR CABRERA NOTIFIED. STATED TO LET PT REST & RECHECK VITALS IN AM LONG PT IS ASYMTPOMATIC.
--- NOTE | 2019-08-23 05:56 | NUR ---
PT HAS REMAINED IN BED THE ENTIRE SHIFT SLEEPING INTERMITTENTLY AT THE BEGINNING FOR A TOTAL OF APPROX 10 HOURS SLEEP THIS SHIFT.
[2019-08-23 06:15] VITALS: BP 168/86; BP 184/98
--- NOTE | 2019-08-23 06:15 | NUR ---
I-530 0-700 CELIS, PT HAS BEEN SLEEPING QUIETLY WITH NO COMPLAINTS, REMAINS ASYMPTOMATIC, DENIES ANY PHYSICAL DISCOMFORT. BP-184/98 MANUAL, RADIAL PULSE 72.
--- NOTE | 2019-08-23 06:40 | NUR ---
DR CUMMINGS NOTED OF PTS BP & PULSE. ORDERS RECEIVED TO GIVE CATAPRES 0.2 MG NOW. NOTIFIED BUYER BROKER, SARAH, SHE STATED SHE DID NOT HAVE PO & COULD WE WAIT UNTIL [address] HERE[address] CUMMINGS NOTIFIED & HE STATED IT WAS OK TO WAIT UNTIL PHARMACY CAME IN AT 0700.
--- NOTE | 2019-08-23 07:05 | NUR ---
PHYSICAL THERAPY Patient seen this am for therapy visit and was supine in bed upon therapist arrival. Patient identified by name / and voices no new c/o's this morning. OT district administrative assistant was present for observation only this session as patient presents with increased "sluggish" behaviour and pretty much non verbal most of the treatment. Patient transfers supine to sit EOB with MIN A, then sit to stand CGA. Patient ambulates with use of wh walker, CGA, 100' x 1, demonstrating decreased posture / stride and Poor walker safety / navigation. Patient needed v/c to stand up straight while stepping up closer to walker for improved safety / walker control. Patient demonstrated a little improvement, however with very little carryover upon return to activity room chair at table. Patient remained at table under [facility] staff Supervision awaiting breakfast. Will continue per POC as tolerated, total treatment time 14 minutes. Bernardo Juarez, FIRE COORDINATOR
--- NOTE | 2019-08-23 07:20 | NUR ---
OT NOTE Pt was seen this A.M. 1:1 for 20 minute OT session with SOCIAL MEDIA STRATEGIST and nursing staff present for observation only. Upon arrival pt was supine in bed. Pt identified by name and and had complaints of increased fatigue. Pt transferred supine to sit EOB with Mercedes for assist with UB. While sitting EOB pt donned B socks with SBA. Sit to stand completed from bed level with Mercedes and use of w/w for UE support. Functional mobility was then completed to the dining room with CGA and use of w/w, pt required constant verbal prompts for correcting his posture and staying closer distance to the walker. Pt was able to tolerate aprox 4 minutes of dynamic standing tolerance before sitting due to fatigue. Pt was left sitting upright in the dining room under [facility] staff supervision. Continue with rec D/C plan to SNF. JEWELS Leary/Bridget
--- NOTE | 2019-08-23 08:15 | NUR ---
Treatment Plan meeting was held this a.m. with Dr. Monroy, RN, AT, [facility] and Fixed Assets Accountant in attendance. Plan for discharge today. Pt. is accepted at [facility]. Pt. will receive Primary Care follow up and Mental Health Follow up at facility. Transportation to facility will be provided by Pt. daughter.
[2019-08-23] MEDS ORDERED: MIRTAZAPINE45 MG PO (08:26)
[2019-08-23] MEDS ORDERED: EXELON13.3 MG/21 T (08:26)
[2019-08-23] MEDS ORDERED: MEMANTINE HCL10 MG PO (08:26)
--- NOTE | 2019-08-23 08:31 | NUR ---
DR BAILEY UPDATED ABOUT PATIENT BLOOD PRESSURE RESULT AFTER GIVEN CATAPRESS 0.2MG AND UDATED ABOUT DISCHARGE TODAY
--- NOTE | 2019-08-23 08:54 | NUR ---
DR. SINGH ON UNIT TO ASSESS PATIENT.
[2019-08-23] MEDS ORDERED: MIDODRINE HCL5 M1 PO (08:57)
[2019-08-23] MEDS ORDERED: LISINOPRIL10 M1 PO (08:57)
[2019-08-23] MEDS ORDERED: CIPROFLOXACIN500 M4 PO (08:57)
--- NOTE | 2019-08-23 09:36 | NUR ---
Spoke with pt's daughter Darleen Culp who stated that she will be at [facility] to transport pt to at 11:00 today. Also provided pt update to Darleen.
--- NOTE | 2019-08-23 10:01 | NUR ---
Discharge Paperwork and Clinical Updates faxed to [facility] Attn: Brandie [phone].
--- NOTE | 2019-08-23 11:05 | NUR ---
P-CONFUSION I-REDIRECTION WITH 1:1 THERAPEUTIC INTERVENTIONS AND PRESENT REALITY. EDUCATE AND ENCOURAGE MEDICATION COMPLIANCE R-PATIENT MEDICATION COMPLIANT THROUGHOUT SHIFT. CELIS PATENT DRAINING YELLOW URINE. PATIENT ALERT TO SELF, PLACE AND AT TIMES SITUATIONS. PATIENT WITH FLAT AFFECT. PATIENT WITH RIGHT SIDED WEAKNESS. PATIENT WITH NO HALLUCINATIONS OR DELUSIONS. PATIENT WITH NO SUICIDAL OR HOMICIDAL IDEATIONS. PATIENT AMBULATING ON UNIT WITH ASSIST X 1 AND WHEELED WALKER. FLU VACCINE ADMINISTERED IN LEFT DELTOID THIS SHIFT. P-CONTINUE TO ENCOURAGE MEDICATION COMPLIANCE, CONTINUE TO PRESENT REALITY, ENCOURAGE GROUP THERAPY WHILE AWAKE
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
--- NOTE | 2019-08-23 11:41 | NUR ---
PATIENT DISCHARGED FROM UNIT TO [facility] IN [place]. PATIENT OF UNIT VIA WHEELCHAIR WITH BELONGINGS. PATIENT ESCORTED OFF UNIT VIA THIS NURSE AND DAUGHTER-POA. PATIENT VITAL SIGNS STABLE AT TIME OF DISCHARGE. PATIENT TRANSFERRED TO [facility] VIA DAUGHTER PRIVATE VEHICLE. MEDICATIONS RETURNED TO PHARMACY. DISCHARGE PAPERWORK GIVEN TO CATHERINE HALL FOR HER AND FOR FACILITY
--- NOTE | 2019-08-23 11:52 | NUR ---
Patient discharged today to [facility]. Follow-up will be with Dr Monroy, visiting psychiatrist. While at [facility], pt's mood improved. Pt was no longer voicing suicdial ideations. Pt participated in some of the [facility] programming.
--- NOTE | 2019-08-24 07:13 | NUR ---
OCCUPATIONAL THERAPY CO-SIGN I approve of the Occupational Therapy notes written above. CIRO PACHECO OTR/Bridget
--- NOTE | 2019-08-24 07:39 | NUR ---
PHYSICAL THERAPY CO-SIGN I approve of the Physical Therapy notes written above. Mirta Li PT
== END 2019-08-23 11:41 | disposition other institution (70) | DRG 885 ==
LOC: 3N 15:52
PROVIDERS: Family Medicine; Internal Medicine; ADMIT Psychiatry & Neurology Psychiatry
DX: F33.2 Major depressive disorder, recurrent severe without psychotic features (principal); N17.0 Acute kidney failure with tubular necrosis; N39.0 Urinary tract infection, site not specified; F01.50 Vascular dementia, unspecified severity, without behavioral disturbance, psychotic disturbance, mood disturbance, and anxiety; I25.10 Atherosclerotic heart disease of native coronary artery without angina pectoris; K21.9 Gastro-esophageal reflux disease without esophagitis; E78.5 Hyperlipidemia, unspecified; I10 Essential (primary) hypertension; D53.9 Nutritional anemia, unspecified; R82.71 Bacteriuria; E11.65 Type 2 diabetes mellitus with hyperglycemia; N40.1 Benign prostatic hyperplasia with lower urinary tract symptoms; R33.8 Other retention of urine; I95.9 Hypotension, unspecified; Z90.49 Acquired absence of other specified parts of digestive tract; Z79.82 Long term (current) use of aspirin; Z86.73 Personal history of transient ischemic attack (TIA), and cerebral infarction without residual deficits; Z79.899 Other long term (current) drug therapy